=== PATIENT | male | born 1995 | race Caucasian/White ===

== ENCOUNTER 2017-11-22 13:07 | Emergency (ER) | payer OTHER | END 2017-11-22 14:16 | disposition home or self-care (01) | LOC: E/R 14:16 | DX: J11.1 Influenza due to unidentified influenza virus with other respiratory manifestations (principal); I10 Essential (primary) hypertension | CPT/HCPCS: 99283 ==

== ENCOUNTER 2018-03-29 12:00 | Emergency (ER) | payer OTHER ==
[2018-03-29] MEDS: SOD CHLORIDE 0.9% 1,000 ML IV (12:52)
[2018-03-29] MEDS: DIPHENHYDRAMINE 50 MG INJ IV (12:53)
[2018-03-29] MEDS: KETOROLAC 30 MG INJ IV (12:53)
[2018-03-29] MEDS: ONDANSETRON 4 MG INJ IV (12:53)
== END 2018-03-29 14:19 | disposition home or self-care (01) ==
LOC: FTE 12:00
DX: R51 Headache (principal); R05 Cough; M79.675 Pain in left toe(s); I10 Essential (primary) hypertension; F17.210 Nicotine dependence, cigarettes, uncomplicated
CPT/HCPCS: 71045; 73660; 96374; 96375; 99284-25

== ENCOUNTER 2018-12-09 10:54 | Emergency (ER) | payer OTHER ==
[2018-12-09] MEDS: DIPHTH/TET/ACEL PERTUSS (ADULT) 0.5 ML VIAL IM* (13:34)
== END 2018-12-09 13:41 | disposition home or self-care (01) ==
LOC: FTE 10:54
DX: S91.341A Puncture wound with foreign body, right foot, initial encounter (principal); W45.0XXA Nail entering through skin, initial encounter; Y92.89 Other specified places as the place of occurrence of the external cause; Z23 Encounter for immunization
CPT/HCPCS: 90471; 90715; 99283-25